=== PATIENT | female | born 1955 | race Caucasian/White ===

== ENCOUNTER → 2017-12-16 | Day surgery (SDC) | payer BC ==
[~2017-12-16] MED LIST: Lactated Ringers 1,000 ML IV SCH; Propofol 200 MG/20 ML SDV IV ONE
[2017-12-16 12:10] VITALS: BP 109/87
--- NOTE | 2017-12-16 13:15 | OR ---
DATE OF OPERATION: 12/16/2017 PREOPERATIVE DIAGNOSIS: ALTERED BOWEL HABITS. POSTOPERATIVE DIAGNOSIS: ALTERED BOWEL HABITS. SURGEON: Cuco Salvador MD PROCEDURE: FULL-LENGTH COLONOSCOPY. ANESTHESIA: PRESS SETTER due to the elevated BMI and depression with anxiety. COMPLICATIONS: None. SPECIMEN: None. FINDINGS: Normal full length colonoscopy. RECOMMENDATIONS: Routine colonoscopy every 10 years. INDICATIONS: The patient was in for altered bowel habits. Colonoscopy was ordered. DESCRIPTION OF PROCEDURE: The patient was prepped and draped, placed in the left lateral decubitus position. A lubricated Olympus colonoscope was inserted and easily advanced to the cecum. Direct visualization of the ileocecal valve and appendiceal orifice was accomplished. The bowel prep was adequate. A significant amount of stool on the right colon, but we were able to irrigate and suction mostly all of this. Upon withdrawal, throughout the entire length of the colon, I could find no signs of polyps, mass, ulceration, or bleeding sites. No vascular abnormalities or signs of colitis. There may have been a few scattered diverticula in the sigmoid, but minimal. Rectal vault was benign. Retroflexion of scope in the rectum showed no anal lesions. Air was suctioned and scope removed without complication. ALYSON/CATRACHO /[id number]
== END ==
LOC: CC.SDS 10:43
PROVIDERS: ATTEND Family Medicine
DX: R19.4 Change in bowel habit (principal); K57.30 Diverticulosis of large intestine without perforation or abscess without bleeding; F41.8 Other specified anxiety disorders; M17.0 Bilateral primary osteoarthritis of knee; N32.81 Overactive bladder; I87.2 Venous insufficiency (chronic) (peripheral); E66.9 Obesity, unspecified; Z68.35 Body mass index [BMI] 35.0-35.9, adult; Z79.899 Other long term (current) drug therapy; Z88.1 Allergy status to other antibiotic agents; Z88.2 Allergy status to sulfonamides; Z91.040 Latex allergy status
CPT/HCPCS: 45378; J2704; J7120

== ENCOUNTER 2019-09-10 09:40 | Observation (INO) | payer BC ==
[2019-09-10 10:19] LABS: CHLORIDE,CL 104 mEq/L (98-106); SODIUM,NA 142 mEq/L (136-145)
[2019-09-10] MEDS ORDERED: Sodium Chloride 0.9% 10 ML Syringe FLUSH PRN (12:02)
[2019-09-10] MEDS: Enoxaparin 40 MG/0.4 ML Syringe SUBCUT SCH (21:07)
[2019-09-10] MEDS: Temazepam 15 MG Cap PO PRN (22:16)
[2019-09-11 07:47] VITALS: BP 119/73; PULSE 55
--- NOTE | 2019-09-11 13:56 | PCM.DCSUM1 ---
Discharge Summary - Hospital Course Free Text/Narrative:: Patient presented to see Dr. Salvador for concerns with dizziness. Had an episode on Tuesday while driving where she felt like she blacked out. States had thought she pulled over but awoke and was still on the road. Unsure how long she "was out". Had another episode similar on Tuesday. Has had a headache since. She still continues to feel dizzy with head movements. Mother had history of stroke and patient was concerned. Heart rate in the clinic was noted in the low 40s. Dr. Salvador consulted with Dr. Roy in regards to symptoms. Recommended cardiac monitoring, stress test in am. Diagnosis: Stroke: No Modified Camden Scale: No Symptoms at All Modified Camden Scale Score: 0 - Discharge Data Discharge Date: 09/11/19 Discharge Disposition: Home, Self-Care 01 Condition: Good - Referral to Home Health Primary Care Physician: Cuco Salvador MD - Patient Summary/Data Complications: none Hospital Course: Patient is doing well. Has been up and ambulating in halls frequently and tolerating well. Heart rate does increase in to the 70s with activity but remains in the 40-50 range while at rest. No further lightheadedness. Blood pressure has been stable. Dr. Salvador did stress test this am, tolerated well, heart rate did increase. No chest pain during stress test. Will arrange for Zio Patch from Dr. Roy's office. Discharge home. Follow up with Dr. Roy after Zio patch results received. - Patient Instructions Diet: Usual Diet as Tolerated Activity: As Tolerated Other/Special Instructions: Will have zio patch applied in [place]. Will fax order to them and they will call you and set up. - Discharge Plan *PRESCRIPTION DRUG MONITORING PROGRAM REVIEWED*: No *COPY OF PRESCRIPTION DRUG MONITORING REPORT IN PATIENT RHEA: No Home Medications: Home Meds Cholecalciferol (Vitamin D3) [Vitamin D3] 1 cap PO DAILY 06/11/14 [History] estradioL [Estrace] 1 mg PO DAILY 06/11/14 [History] traZODone HCl [Trazodone HCl] 50 mg PO DAILY 06/11/14 [History] Citalopram Hydrobromide [Celexa] 20 mg PO DAILY 12/14/17 [History] Meloxicam 15 mg PO DAILY 12/14/17 [History] Oxybutynin Chloride 5 mg PO DAILY 12/14/17 [History] Referrals: Cuco Salvador MD [Primary Care Provider] - (Follow up with Dr. Salvador in 2 weeks) - Discharge Summary/Plan Comment DC Time >30 min.: No - General Info Date of Service: 09/11/19 Admission Dx/Problem (Free Text: syncope bradycardia Functional Status: Reports: Pain Controlled, Tolerating Diet, Ambulating - Review of Systems General: Reports: No Symptoms HEENT: Reports: No Symptoms Pulmonary: Reports: No Symptoms Cardiovascular: Reports: Lightheadedness Gastrointestinal: Reports: No Symptoms Genitourinary: Reports: No Symptoms Musculoskeletal: Reports: No Symptoms Skin: Reports: Bruising Neurological: Reports: Dizziness, Headache - Patient Data Vitals - Most Recent: Last Vital Signs Temp 98 F 09/11/19 07:46 Pulse 55 L 09/11/19 07:46 Resp 16 09/11/19 07:46 BP 119/73 09/11/19 07:46 Pulse Ox 99 09/11/19 07:46 Weight - Most Recent: 214 lb 14.4 oz Med Orders - Current: Current Medications Discontinued Medications Enoxaparin Sodium (Lovenox) 40 mg SUBCUT Q24H [facility] Last Admin: 09/10/19 21:07 Dose: 40 mg Documented by: Sodium Chloride (Saline Flush) 10 ml FLUSH ASDIRECTED PRN PRN Reason: Keep Vein Open Temazepam (Restoril) 15 mg PO BEDTIME PRN PRN Reason: Insomnia Last Admin: 09/10/19 22:16 Dose: 15 mg Documented by: - Exam General: Reports: Alert, Oriented HEENT: Reports: Mucous Membr. Moist/[place]ck: Reports: Supple Lungs: Reports: Clear to Auscultation, Normal Respiratory Effort Cardiovascular: Reports: Regular Rate, Regular Rhythm GI/Abdominal Exam: Normal Bowel Sounds, Soft, Non-Tender Extremities: Normal Inspection, No Pedal Edema Skin: Reports: Warm, Dry Neurological: Reports: No New Focal Deficit
--- NOTE | 2019-09-12 15:48 | OR ---
DATE OF OPERATION: 09/11/2019 PROCEDURE: STRESS TEST. INDICATIONS: Mya was seen for dizziness and near-syncope. She has been having bradycardia. She was evaluated via stress test for such. DESCRIPTION OF PROCEDURE: She was exercised using standard Rajan protocol for a total exercise time of 7 minutes. She was able to exercise briefly into treadmill stage III. During the testing phase, she had no chest pain, no dizziness. She achieved a max heart rate of 157 with a max BP 130/78. Both were appropriate responses achieving a max workload of 10.10 METS. The test was stopped due to fatigue and achieving target heart rate. At maximal exercise, the patient had no obvious exercise-induced arrhythmias. Stress test tracings were extremely poor, but I could see no signs of any ischemia. Overall, this appeared to be an adequate and negative treadmill stress test with excellent chronotropic response to exertion. ALYSON/CATRACHO /[id number]
== END 2019-09-11 13:30 | disposition home or self-care (01) ==
LOC: CC.FCMC 09:40 → CC.MS 09:40 → UNDOADMOB 11:08 → CC.MS 12:02
PROVIDERS: ADMIT Family Medicine; ATTEND Family Medicine
DX: R55 Syncope and collapse (principal); R51 Headache; R00.1 Bradycardia, unspecified; F32.9 Major depressive disorder, single episode, unspecified; K21.9 Gastro-esophageal reflux disease without esophagitis; E66.9 Obesity, unspecified; M17.0 Bilateral primary osteoarthritis of knee; Z88.1 Allergy status to other antibiotic agents; Z88.2 Allergy status to sulfonamides; Z91.040 Latex allergy status; Z79.899 Other long term (current) drug therapy; Z68.36 Body mass index [BMI] 36.0-36.9, adult
CPT/HCPCS: 36415; 70450; 80048; 84484; 85025; 93005; 93017; 93306; 93880; 96372; A9270-GY; G0378; J1650

== ENCOUNTER 2020-02-09 08:33 | Emergency (ER) | payer BC ==
[2020-02-09 08:45] LABS: CORONAVIRUS COVID-19 RAPID POSITIVE (NEGATIVE)
[2020-02-09 08:47] VITALS: BP 118/76; PULSE 84
--- NOTE | 2020-02-09 09:20 | EDM.PDOC ---
ED HPI GENERAL MEDICAL PROBLEM - General Chief Complaint: General Stated Complaint: I think i have a sinus infection Time Seen by Provider: 02/09/20 09:05 Source of Information: Reports: Patient History Limitations: Reports: No Limitations - History of Present Illness INITIAL COMMENTS - FREE TEXT/NARRATIVE: Patient presents with complaints of sinus congestion, concerned has sinus infection. Did have fever yesterday. Complains of headache. No sinus drainage. No cough. No shortness of breath. Denies nausea/vomiting/diarrhea. Does have loss of smell but feels related to sinus congestion. Onset: Gradual Duration: Day(s): Location: Reports: Head Quality: Reports: Ache Severity: Mild Improves with: Reports: Medication Associated Symptoms: Reports: Fever/Chills, Malaise. Denies: Confusion, Chest Pain, Cough, Loss of Appetite, Nausea/Vomiting, Shortness of Breath Treatments PRODUCT DESIGN SPECIALIST: Reports: Acetaminophen Headache Pain Score (Numeric/FACES): 4 - Related Data Allergies Allergy/AdvReac Type Severity Reaction Status Date / Time ciprofloxacin [From Cipro] Allergy Unknown Other Verified 02/09/20 08:48 Sulfa (Sulfonamide Allergy Unknown Other Verified 02/09/20 08:48 Antibiotics) latex Allergy Cannot Verified 02/09/20 08:48 Remember Home Meds: Home Meds Cholecalciferol (Vitamin D3) [Vitamin D3] 1 cap PO DAILY 06/11/14 [History] estradioL [Estrace] 1 mg PO DAILY 06/11/14 [History] traZODone HCl [Trazodone HCl] 50 mg PO DAILY 06/11/14 [History] Citalopram Hydrobromide [Celexa] 20 mg PO DAILY 12/14/17 [History] Meloxicam 15 mg PO DAILY 12/14/17 [History] Oxybutynin Chloride 5 mg PO DAILY 12/14/17 [History] Past Medical History - Past Health History Medical/Surgical History: Denies Medical/Surgical History HEENT History: Reports: Sinusitis Cardiovascular History: Reports: Pacemaker, Other (See Below) Other Cardiovascular History: hypotension Gastrointestinal History: Reports: Cholelithiasis Genitourinary History: Reports: Other (See Below) Other Genitourinary History: Bladder control problems Musculoskeletal History: Reports: Arthritis Psychiatric History: Reports: Anxiety, Depression Oncologic (Cancer) History: Reports: Other (See Below) Other Oncologic History: melanoma Dermatologic History: Reports: Melanoma - Past Surgical History Cardiovascular Surgical History: Reports: Vascular Surgery Other Cardiovascular Surgeries/Procedures: vein surgery on her L calf. GI Surgical History: Reports: Appendectomy, Cholecystectomy Female Surgical History: Reports: Hysterectomy Musculoskeletal Surgical History: Reports: Arthroscopic Knee, Arthroscopic Procedure, Knee Replacement Other Musculoskeletal Surgeries/Procedures:: Toe and wrist surgery; R knee manipulation; L knee scope Dermatological Surgical History: Reports: Other (See Below) Social & Family History - Family History Family Medical History: No Pertinent Family History - Tobacco Use Tobacco Use Status *Q: Never Tobacco User - Caffeine Use Caffeine Use: Reports: None ED ROS GENERAL - Review of Systems Review Of Systems: See Below Constitutional: Reports: Fever, Chills, Malaise, Fatigue. Denies: Weakness, Decreased Appetite HEENT: Reports: Rhinitis, Sinus Problem. Denies: Ear Pain, Throat Pain Respiratory: Denies: Shortness of Breath, Cough Cardiovascular: Denies: Chest Pain, Edema, Lightheadedness Endocrine: Reports: Fatigue GI/Abdominal: Denies: Abdominal Pain, Nausea, Vomiting ED EXAM, GENERAL - Physical Exam Exam: See Below Exam Limited By: No Limitations General Appearance: Alert, WD/WN, No Apparent Distress Ears: Normal External Exam, Normal TMs Nose: Normal Inspection, Normal Mucosa, Nasal Drainage, Other (maxillary sinus tenderness noted) Throat/Mouth: Normal Inspection, Normal Oropharynx Head: Normocephalic Neck: Normal Inspection, Supple, Non-Tender Respiratory/Chest: No Respiratory Distress, Lungs Clear, Normal Breath Sounds Cardiovascular: Regular Rate, Rhythm GI/Abdominal: Normal Bowel Sounds, Soft, Non-Tender Extremities: Normal Inspection, No Pedal Edema Neurological: Alert, Oriented Skin Exam: Warm, Dry Course - Vital Signs Last Recorded V/S: Last Vital Signs Temp 98.2 F 02/09/20 08:38 Pulse 84 02/09/20 08:38 Resp 16 02/09/20 08:38 BP 118/76 02/09/20 08:38 Pulse Ox 97 02/09/20 08:38 - Orders/Labs/Meds Labs: Laboratory Tests 02/09/20 Range/Units 08:36 SARS CoV-2 RNA Rapid TAM Positive H (NEGATIVE) - Re-Assessments/Exams Free Text/Narrative Re-Assessment/Exam: 02/09/20 Covid positive. Discussed signs/symptoms and treatment of covid. Will isolate. Await call from [facility]. Departure - Departure Time of Disposition: 09:13 Disposition: Home, Self-Care 01 Condition: Good Clinical Impression: COVID-19 - Discharge Information *PRESCRIPTION DRUG MONITORING PROGRAM REVIEWED*: Not Applicable *COPY OF PRESCRIPTION DRUG MONITORING REPORT IN PATIENT RHEA: Not Applicable Instructions: COVID-19 Frequently Asked Questions, Prevent the Spread of COVID- 19 if You Are Sick - [facility] Referrals: PCP,None [Primary Care Provider] - Forms: ED Department Discharge Additional Instructions: 1. Rest 2. Push fluids 3. Lay on stomach when able 4. Continue magnesium, zinc, vitamin D and vitamin C 5. Can take decongestants 6. Tylenol or ibuprofen for headache 7. Return if develop shortness of breath or worsening symptoms or call with concerns. Sepsis Event Note (ED) - Evaluation Sepsis Screening Result: No Definite Risk - Focused Exam Vital Signs: Vital Signs Temp Pulse Resp BP Pulse Ox 02/09/20 08:38 98.2 F 84 16 118/76 97
== END 2020-02-09 09:25 | disposition home or self-care (01) ==
LOC: CC.ED 08:33
DX: U07.1 COVID-19 (principal); F41.9 Anxiety disorder, unspecified; F32.9 Major depressive disorder, single episode, unspecified; M19.90 Unspecified osteoarthritis, unspecified site; Z88.1 Allergy status to other antibiotic agents; Z88.2 Allergy status to sulfonamides; Z91.040 Latex allergy status; Z79.899 Other long term (current) drug therapy
CPT/HCPCS: 99283; U0002

== ENCOUNTER 2020-03-21 17:17 | Emergency (ER) | payer BC ==
[2020-03-21] MEDS ORDERED: Ondansetron 4 MG/2 ML SDV IVPUSH STA (17:56)
[2020-03-21] MEDS ORDERED: Morphine 4 MG/ML VIAL IVPUSH ONE (17:56)
--- NOTE | 2020-03-21 18:00 | EDM.PDOC ---
ED HPI GENERAL MEDICAL PROBLEM - General Chief Complaint: Upper Extremity Injury/Pain Stated Complaint: LT SHLDR PAIN Time Seen by Provider: 03/21/20 17:35 Source of Information: Reports: Patient History Limitations: Reports: No Limitations - History of Present Illness INITIAL COMMENTS - FREE TEXT/NARRATIVE: This patient is a 64 year old female that presents to the ER. Patient reports she was about 3 steps up on a ladder and cleaning when she slipped and her arm got caught on ladder. She reports having left shoulder pain. She denies hitting her head, loc, n, v, vision changes, neck pain, back pain, chest pain, abd pain, or any other pain complaints other than left shoulder. Patient is in arm sling position. Onset: Today Onset Date: 03/21/20 Duration: Hour(s): (1) Quality: Reports: Ache Severity: Moderate Improves with: Reports: Immobilization Worsens with: Reports: Movement Associated Symptoms: Reports: No Other Symptoms Left Shoulder Pain Score (Numeric/FACES): 3 - Related Data Allergies Allergy/AdvReac Type Severity Reaction Status Date / Time ciprofloxacin [From Cipro] Allergy Unknown Other Verified 03/21/20 17:30 Sulfa (Sulfonamide Allergy Unknown Other Verified 03/21/20 17:30 Antibiotics) latex Allergy Cannot Verified 03/21/20 17:30 Remember Home Meds: Home Meds Cholecalciferol (Vitamin D3) [Vitamin D3] 1 cap PO DAILY 06/11/14 [History] estradioL [Estrace] 1 mg PO DAILY 06/11/14 [History] traZODone HCl [Trazodone HCl] 50 mg PO DAILY 06/11/14 [History] Citalopram Hydrobromide [Celexa] 20 mg PO DAILY 12/14/17 [History] Meloxicam 15 mg PO DAILY 12/14/17 [History] Oxybutynin Chloride 5 mg PO DAILY PRN 12/14/17 [History] Past Medical History - Past Health History Medical/Surgical History: Denies Medical/Surgical History HEENT History: Reports: Sinusitis Cardiovascular History: Reports: Pacemaker, Other (See Below) Other Cardiovascular History: hypotension Gastrointestinal History: Reports: Cholelithiasis Genitourinary History: Reports: Other (See Below) Other Genitourinary History: Bladder control problems Musculoskeletal History: Reports: Arthritis Psychiatric History: Reports: Anxiety, Depression Oncologic (Cancer) History: Reports: Other (See Below) Other Oncologic History: melanoma Dermatologic History: Reports: Melanoma - Past Surgical History Cardiovascular Surgical History: Reports: Vascular Surgery Other Cardiovascular Surgeries/Procedures: vein surgery on her L calf. GI Surgical History: Reports: Appendectomy, Cholecystectomy Female Surgical History: Reports: Hysterectomy Musculoskeletal Surgical History: Reports: Arthroscopic Knee, Arthroscopic Procedure, Knee Replacement Other Musculoskeletal Surgeries/Procedures:: Toe and wrist surgery; R knee manipulation; L knee scope Dermatological Surgical History: Reports: Other (See Below) Social & Family History - Family History Family Medical History: No Pertinent Family History - Tobacco Use Tobacco Use Status *Q: Never Tobacco User - Caffeine Use Caffeine Use: Reports: None Review of Systems - Review of Systems Review Of Systems: See Below Constitutional: Reports: No Symptoms Eyes: Reports: No Symptoms Ears: Reports: No Symptoms Nose: Reports: No Symptoms Mouth/Throat: Reports: No Symptoms Respiratory: Reports: No Symptoms Cardiovascular: Reports: No Symptoms GI/Abdominal: Reports: No Symptoms Genitourinary: Reports: No Symptoms Musculoskeletal: Reports: Shoulder Pain (Left) Skin: Reports: No Symptoms Neurological: Reports: No Symptoms Psychiatric: Reports: No Symptoms ED EXAM, GENERAL - Physical Exam Exam: See Below Exam Limited By: No Limitations General Appearance: Alert, WD/WN, No Apparent Distress Eye Exam: Bilateral Eye: Normal Inspection Respiratory/Chest: No Respiratory Distress, Lungs Clear, Normal Breath Sounds, No Accessory Muscle Use Cardiovascular: Normal Peripheral Pulses, Regular Rate, Rhythm, No Edema, No Gallop, No JVD, No Murmur, No Rub Peripheral Pulses: 2+: Radial (L), Radial (R), Posterior Tibial (L), Posterior Tibial (R) GI/Abdominal: Soft, Non-Tender Extremities: No Pedal Edema, Normal Capillary Refill, Limited Range of Motion (Left shoulder, in arm sling position. ), Other (Pain, tenderness anterior left shoulder) Neurological: Alert, Oriented Psychiatric: Normal Affect, Normal Mood Skin Exam: Warm, Dry, Intact, Normal Color, No Rash ED TRAUMA EXTREMITY PROCEDURES - Joint Reduction Left Shoulder Sedation: Conscious Sedation Pre-Procedure NV Status: Normal Post-Procedure NV Status: Normal Technique: Other ([place]) Number of Attempts: 1 Post-Reduction Imaging: Completely Reduced, No Fracture Seen Joint Reduction Complications: No Course - Vital Signs Last Recorded V/S: Last Vital Signs Temp 96.2 F L 03/21/20 20:11 Pulse 60 03/21/20 20:11 Resp 18 03/21/20 20:11 BP 122/56 L 03/21/20 20:11 Pulse Ox 95 03/21/20 20:11 - Orders/Labs/Meds Orders: Active Orders 24 hr Category Date Time Status Cardiac Monitoring [RC] . DIRECTED Care 03/21/20 18:33 Active Oxygen Therapy, ED [RC] ASDIRECTED Care 03/21/20 18:33 Active Shoulder Comp Lt [CR] Stat Exams 03/21/20 17:18 Taken Shoulder Comp Lt [CR] Stat Exams 03/21/20 19:10 Taken Meds: Medications Discontinued Medications Generic Name Dose Route Start Last Admin Trade Name Maria C PRN Reason Stop Dose Admin Midazolam HCl 1 mg 03/21/20 18:31 03/21/20 18:42 Versed 1 Mg/Ml IVPUSH 03/21/20 18:32 1 mg ONETIME ONE Administration Morphine Sulfate 4 mg 03/21/20 17:56 03/21/20 18:13 Morphine IVPUSH 03/21/20 17:57 4 mg ONETIME ONE Administration Ondansetron HCl 4 mg 03/21/20 17:56 03/21/20 18:10 Zofran IVPUSH 03/21/20 17:57 4 mg NOW STA Administration - Radiology Interpretation Free Text/Narrative:: Left shoulder: shoulder anterior inferior dislocation Post Reduction left shoulder: No fracture. Reduction success with shoulder in place. - Re-Assessments/Exams Free Text/Narrative Re-Assessment/Exam: 03/21/20 18:00 Patient being medicated then will attempt shoulder reduction. 03/21/20 18:40 Patient placed on threat monitoring analyst, oxygen at 2L [place], patient explained risk vs benefits and accepted. 1mg Versed given, patient is awake, alert, but relaxed. Kochers method performed. There was a pop sensation at the shoulder without complications during method. Patient after method is able to extend, rotate, and abduct her left shoulder. She repeats she does not have pain anymore. Will repeat Xray. Departure - Departure Time of Disposition: 20:29 Disposition: Home, Self-Care 01 Condition: Fair Clinical Impression: Shoulder dislocation Qualifiers: Encounter type: initial encounter Laterality: left Qualified Code(s): S43.005A - Unspecified dislocation of left shoulder joint, initial encounter - Discharge Information *PRESCRIPTION DRUG MONITORING PROGRAM REVIEWED*: Not Applicable *COPY OF PRESCRIPTION DRUG MONITORING REPORT IN PATIENT RHEA: Not Applicable Instructions: Shoulder Pain, [id number], Shoulder Dislocation, [id number] Referrals: PCP,None [Primary Care Provider] - Forms: ED Department Discharge Additional Instructions: Followup with your primary care provider if pain continues Followup with orthopedic as needed with the next 2 weeks Rest Ice Elevate in sling Tylenol or Motrin for pain Return to the ER for worsening of condition or any emergent concerns Sepsis Event Note (ED) - Evaluation Sepsis Screening Result: No Definite Risk - Focused Exam Vital Signs: Vital Signs Temp Pulse Resp BP Pulse Ox 03/21/20 20:11 96.2 F L 60 18 122/56 L 95 03/21/20 19:20 96.4 F L 65 18 117/63 95 03/21/20 18:36 67 18 121/57 L 96 03/21/20 18:31 97.2 F 65 19 131/60 95 03/21/20 17:22 98.2 F 68 18 139/55 L 96 - My Orders Last 24 Hours: My Active Orders 03/21/20 17:18 Shoulder Comp Lt [CR] Stat 03/21/20 18:33 Cardiac Monitoring [RC] . DIRECTED Oxygen Therapy, ED [RC] ASDIRECTED 03/21/20 19:10 Shoulder Comp Lt [CR] Stat - Assessment/Plan Last 24 Hours: My Active Orders 03/21/20 17:18 Shoulder Comp Lt [CR] Stat 03/21/20 18:33 Cardiac Monitoring [RC] . DIRECTED Oxygen Therapy, ED [RC] ASDIRECTED 03/21/20 19:10 Shoulder Comp Lt [CR] Stat Plan: PLEASE SEE RN NOTE FOR PFSH
[2020-03-21] MEDS ORDERED: Midazolam 1 MG/ML 2 ML SDV IVPUSH ONE (18:31)
[2020-03-21 20:12] VITALS: BP 122/56; PULSE 60
== END 2020-03-21 20:41 | disposition home or self-care (01) ==
LOC: CC.ED 17:17
DX: S43.005A Unspecified dislocation of left shoulder joint, initial encounter (principal); Z88.1 Allergy status to other antibiotic agents; Z88.2 Allergy status to sulfonamides; Z91.040 Latex allergy status; Z79.899 Other long term (current) drug therapy; W11.XXXA Fall on and from ladder, initial encounter
CPT/HCPCS: 23650; 73030-LT; 96374; 96375; 99283-25; J2250; J2270; J2405

== ENCOUNTER 2023-05-20 10:37 | Day surgery (SDC) | payer MEDICARE, OTHER ==
[2023-05-20] MEDS: Lactated Ringers 1,000 ML IV SCH (10:49)
[2023-05-20] MEDS ORDERED: Propofol 200 MG/20 ML SDV ONE ×2 (11:41)
[2023-05-20] MEDS ORDERED: fentaNYL 50 MCG/ML SDV ONE (11:41)
[2023-05-20 12:49] VITALS: BP 118/66; PULSE 61
== END 2023-05-20 12:57 | disposition home or self-care (01) ==
LOC: CC.SDS 10:37
PROVIDERS: ATTEND Family Medicine
DX: D12.0 Benign neoplasm of cecum (principal); R19.7 Diarrhea, unspecified; K63.5 Polyp of colon; D64.9 Anemia, unspecified; I10 Essential (primary) hypertension; K21.9 Gastro-esophageal reflux disease without esophagitis; E03.9 Hypothyroidism, unspecified; E66.9 Obesity, unspecified; N32.81 Overactive bladder; G25.81 Restless legs syndrome; Z79.899 Other long term (current) drug therapy; Z68.32 Body mass index [BMI] 32.0-32.9, adult; Z88.2 Allergy status to sulfonamides; Z88.1 Allergy status to other antibiotic agents
CPT/HCPCS: 87045; 87046; 87493; 89055; J2704; J3010; J7120